=== PATIENT | male | born 1960 | race Caucasian/White ===

== ENCOUNTER 2020-11-25 08:54 | Observation (INO) | payer OTHER ==
[~2020-11-25] VITALS: Ht 177.8 cm; Wt 79.4 kg
[~2020-11-25 08:54] MED LIST: ASPI81TA24 PO; FOLI1TAB19 PO; FURO-570 PO; LISI5TAB PO; METO50TE2 PO; POTA1POW
[2020-11-25 08:55] VITALS: BP 143/90
--- NOTE | 2020-11-25 09:08 | NUR ---
EMT at bedside for EKG.
--- NOTE | 2020-11-25 09:09 | NUR ---
60 y/o male c/o chest pain X2 days describes as sharp constant non-radiating. Pt states episode came on after a "violent coughing episode 3 days ago. Progressively worsen, worsens with deep breath. Pt states +n/v X3 last night, 1 episode this morning. Pt states he took tylenol and norco prior to arrival with some relief. PMH: Prostatic aortic heart valve Meds: metoprolol, warfarin, 81mg ASA, lisinopril NKA
[2020-11-25] MEDS ORDERED: ONDANSETRON 4 MG/2 ML VIAL IVP ONE ×2 (09:25→12:15)
[2020-11-25] MEDS ORDERED: fentaNYL citrate 0.05 MG/ML VIAL IVP ONE (09:25)
--- NOTE | 2020-11-25 09:32 | NUR ---
Lab at bedside.
--- NOTE | 2020-11-25 09:39 | NUR ---
structural engineering technician at pt bedside.
[2020-11-25 09:53] LABS: BASOPHILS % (AUTO) 0.3 % (0.0-2.0); EOSINOPHILS % (AUTO) 0.3 % (0.0-4.0); HEMATOCRIT 43.7 % (36-52); HEMOGLOBIN 15.1 g/dL (12.0-18.0); LYMPHOCYTES # (AUTO) 0.9 K/uL (2.0-11.5); LYMPHOCYTES % (AUTO) 6.2 % (20.5-51.1); MEAN CORPUSCULAR HEMOGLOBIN 32 pg (27-31); MEAN CORPUSCULAR HGB CONC 35 g/dL (33-37); MEAN CORPUSCULAR VOLUME 92.5 fL (80-94); MONOCYTES # (AUTO) 1.6 K/uL (0.8-1.0); MONOCYTES % (AUTO) 11.4 % (1.7-9.3); NEUTROPHILS # (AUTO) 11.3 K/uL (1.8-7.7); NEUTROPHILS % (AUTO) 81.8 % (42.2-75.2); PLATELET COUNT (AUTO) 212 K/uL (140-450); RED BLOOD CELL COUNT(AUTO) 4.73 MIL/uL (4.20-6.10); RED CELL DISTRIBUTION WIDTH 13.4 % (11.6-13.7); WHITE BLOOD COUNT (AUTO) 13.8 K/uL (4.8-10.8)
[2020-11-25 10:06] LABS: ALBUMIN 4.5 g/dL (3.4-5.0); ANION GAP 14.2 (8-16); CARBON DIOXIDE 23.9 mmol/L (21-32); CREATININE 0.7 mg/dL (0.6-1.3); POTASSIUM 4.1 mmol/L (3.5-5.1); TOTAL BILIRUBIN 1.2 mg/dL (0.0-1.0)
--- NOTE | 2020-11-25 11:19 | NUR ---
Pt resting, VSS, will continue to monitor.
--- NOTE | 2020-11-25 11:38 | NUR ---
DR RICH AT BEDSIDE RE-EVALUATING PATIENT
[2020-11-25] MEDS ORDERED: MORPHINE SULFATE 4 MG/ML SYR IVP ONE (12:05)
[2020-11-25] MEDS ORDERED: ONDANSETRON 4 MG/2 ML VIAL ONE (12:20)
--- NOTE | 2020-11-25 12:26 | NUR ---
Patient reports drug reaction after Morphine IVP. Patient noted with (2) 2.5-3cm raised red blister/patches of left forearm near IV site. Patient denies any itchiness, wheezing, chest tightness, hoarseness, difficulty swallowing, or shortness of breath. No distress noted at this time; will continue to monitor. Pt remains on quality assurance monitor final; SpO2 96% on room air.
[2020-11-25 12:28] LABS: PROTHROMBIN TIME 15.4 secs (10.8-13.4)
--- NOTE | 2020-11-25 12:57 | NUR ---
PATIENT TAKEN TO CT VIA AKASH
--- NOTE | 2020-11-25 13:18 | NUR ---
Pt resting, visible equal rise and fall of chest, VSS, will continue to monitor.
[2020-11-25] MEDS ORDERED: ASPIRIN 325 MG TAB PO ONE (13:30)
--- NOTE | 2020-11-25 13:30 | NUR ---
No visible rash to IV site at this time, made aware. Pt denies SOB, denies any other symptoms.
[2020-11-25] MEDS ORDERED: MORPHINE SULFATE 4 MG/ML SYR IVP PRN (14:05)
[2020-11-25] MEDS ORDERED: ACETAMINOPHEN 325 MG TAB PO PRN (14:05)
[2020-11-25] MEDS ORDERED: KCL 20 MEQ/WATER INJ PREMIX 200 ML IV PRN (14:05)
[2020-11-25] MEDS ORDERED: MAG SULF 2000 MG/WATER PREMIX 50 ML IV PRN (14:05)
[2020-11-25] MEDS ORDERED: POTASSIUM CHLORIDE 10 MEQ TABER PO PRN (14:05)
[2020-11-25] MEDS ORDERED: MAGNESIUM OXIDE 400 MG TAB PO PRN (14:05)
--- NOTE | 2020-11-25 15:33 | NUR ---
Pt laying on right side, HOB lowered for comfort, VSS, will continue to monitor.
--- NOTE | 2020-11-25 17:03 | NUR ---
Pt states pain is 9/10 to head, states +N, 1 episode of vomiting. MD made aware.
--- NOTE | 2020-11-25 17:12 | NUR ---
Pt medicated and provided with new emesis bag, will continue to monitor.
[2020-11-25] MEDS: ONDANSETRON 4 MG/2 ML VIAL IVP PRN ×2 (17:17→22:18)
--- NOTE | 2020-11-25 17:36 | NUR ---
Pt resting comfortably, VSS, will continue to monitor.
--- NOTE | 2020-11-25 18:53 | NUR ---
Pt sleeping on left side, HOB lowered for comfort, VSS, will continue to monitor.
--- NOTE | 2020-11-25 19:17 | NUR ---
Gave report to MARGARETH Yanes. Transfer of care at this time.
--- NOTE | 2020-11-25 20:05 | NUR ---
Patient will be admitted to care of DR. HERO CHINCHILLA. Admited to TELEMETRY. Will go to [id number] B Belongings list completed. Report to BLANQUITA ZULUAGA.
--- NOTE | 2020-11-25 20:15 | NUR ---
REPORT GIVEN FROM ER NURSE. PATIENT WAS BROUGHT TO [facility] UNIT. AWAKE, ALERT ORIENTED X4. CC: CHEST PAIN X3 DAYS , COUGHING. DX: CHEST PAIN. LEUKOCYTOSIS. NO ACUTE DISTRESS NOTED. RESPIRATION EVEN UNLABORED. LUNGS CLEAR ON AUSCULTATION, BOWEL SOUNDS PRESENT IN ALL 4 QUADRANT. MRSA SCREENING DONE. ORIENTED TO ROOM, RESTROOM, CALL LIGHT , STAFF. SAFETY MEASURES IN PLACE
[2020-11-25] MEDS: HYDROcodone/APAP 5/325 MG 1 TAB TAB PO PRN (22:18)
[2020-11-26] VITALS: BP 109/75
[2020-11-26 04:00] VITALS: BP 131/78
[2020-11-26] MEDS: HYDROcodone/APAP 5/325 MG 1 TAB TAB PO PRN ×2 (05:08→11:08)
--- NOTE | 2020-11-26 07:03 | NUR ---
PATIENT HAS BEEN SCREENED AND CATEGORIZED MODERATE NUTRITION RISK. PATIENT WILL BE SEEN WITHIN 3-5 DAYS OF ADMISSION. 11/30/20-12/02/20 VAL MORENO MS, RDN
--- NOTE | 2020-11-26 07:27 | NUR ---
ENDORSED TO AM RN FOR CONTINUITY OF CARE. PATIENT IS STABLE.
--- NOTE | 2020-11-26 07:29 | NUR ---
RECEIVED REPORT FROM NIGHT NURSE. ACCORDING TO NIGHT NURSE, PT IS ON A CARDIAC DIET. WITH AN IV ON LEFT ARM 20 GAUGE SALINE LOCK. PT HAS BEEN GIVEN NORCO FOR CHEST PAIN.PT CARDIAC RHYTHM IS A-FIB. PT HAS BEEN COVID-19 VACCINATED WITH MODERNA.SAFETY PRECAUTIONS ARE IN PLACE. CALL LIGHT IS WITHIN REACH. WILL CONTINUE WITH PLAN OF CARE.
--- NOTE | 2020-11-26 08:00 | NUR ---
MADE ROUNDS AT THIS TIME PT IS SLEEPING NO DISTRESS NOTED.
[2020-11-26 10:00] VITALS: BP 123/75
--- NOTE | 2020-11-26 11:12 | NUR ---
ADMINISTERED NORCO FOR 610 PAIN. BP WAS 148/83, AL:90. EDUCATED PT ON MEDICATION, SIDE EFFECTS. PT VERBALIZED UNDERSTANDING ON PAIN MEDICATION. CALL LIGHT IS WITHIN REACH. SAFETY PRECAUTIONS IN PLACE. WILL RE ASSESS PAIN LEVEL IN 1 HOUR.
[2020-11-26 12:00] VITALS: BP 149/73
[2020-11-26] MEDS ORDERED: ACET-9527 PO (12:04)
[2020-11-26 12:58] LABS: MEAN CORPUSCULAR HEMOGLOBIN 32 pg (27-31); WHITE BLOOD COUNT (AUTO) 10.7 K/uL (4.8-10.8)
[2020-11-26 13:03] LABS: BASOPHILS % (AUTO) 0.3 % (0.0-2.0); EOSINOPHILS # (AUTO) 0.1 K/uL (0-0.4); HEMATOCRIT 39.9 % (36-52); HEMOGLOBIN 13.8 g/dL (12.0-18.0); LYMPHOCYTES # (AUTO) 1.2 K/uL (2.0-11.5); LYMPHOCYTES % (AUTO) 11.4 % (20.5-51.1); MEAN CORPUSCULAR HGB CONC 35 g/dL (33-37); MEAN CORPUSCULAR VOLUME 92.2 fL (80-94); MONOCYTES # (AUTO) 1.4 K/uL (0.8-1.0); MONOCYTES % (AUTO) 12.8 % (1.7-9.3); NEUTROPHILS % (AUTO) 74.5 % (42.2-75.2); PLATELET COUNT (AUTO) 189 K/uL (140-450); RED BLOOD CELL COUNT(AUTO) 4.32 MIL/uL (4.20-6.10)
[2020-11-26 13:06] LABS: ALBUMIN 3.9 g/dL (3.4-5.0); ANION GAP 12.4 (8-16); CARBON DIOXIDE 26.5 mmol/L (21-32); CHOL/HDL RATIO 3.3 (1-4.5); CREATININE 0.7 mg/dL (0.6-1.3); MAGNESIUM 1.6 mg/dL (1.8-2.4); POTASSIUM 3.9 mmol/L (3.5-5.1); TOTAL BILIRUBIN 1.1 mg/dL (0.0-1.0)
--- NOTE | 2020-11-26 14:13 | NUR ---
PT HAD 3ML OF EMESIS THAT WAS WATERY AND BROWN IN COLOR/FOOD RESIDUE. PROVIDED AN EMESIS BIN. PT IS NOT ASKING FOR COMFORT MEASURES. PT IS DRINKING WATER AND IS NOT UNDER DISTRESS. CALL LIGHT IS WITHIN REACH AND PT WILL CALL IF HE HAS ANOTHER EMESIS EPISODE. WILL CONTINUE TO MONITOR.
--- NOTE | 2020-11-26 15:05 | NUR ---
DISCHARGED PT. PT WAS PROVIDED WITH DISCHARGE PACKET WHICH INCLUDED PRESCRIBED MEDICATIONS, DISCHARGE INSTRUCTIONS, FOLLOWING UP WITH PCP AND DIRECTOR INDEPENDENT WITHIN 7 DAYS OF DISCHARGE. PT WAS EDUCATED ON THE DISEASE PROCESS AND WHEN TO SEEK MEDICAL HELP IF NEEDED. PT SHOWED VERBAL UNDERSTANDING OFD EDUCATIONS BY THE TEACH BACK METHOD. IV CATHETER WAS DC'S. IV CATHETER WAS INTACT UPON EXPULSION OF SKIN AND DISCARDED PER PROTOCOL.2 2X2 GAUZE WAS APPLIED FOR PROPER SECUREMENT. PT WAS ABLE TO DRESS HIMSELF. PT TOOK ALL OF HIS BELONGINGS. PT WAS WHEELED DOWN BY WHEELCHAIR TO FRONT OF LOBBY ACCOMPANIED BY HIS MOTHER. PT WAS DRIVEN HOME WITH MOTHER VEHICLE. WILL END PLAN OF CARE.
== END 2020-11-26 15:05 | disposition home or self-care (01) ==
LOC: MED 08:54 → MTU 14:07
PROVIDERS: ADMIT Internal Medicine; ATTEND Internal Medicine
DX: R07.89 Other chest pain (principal); I47.1 Supraventricular tachycardia; I10 Essential (primary) hypertension; J40 Bronchitis, not specified as acute or chronic; Z87.891 Personal history of nicotine dependence; Z79.01 Long term (current) use of anticoagulants; Z95.2 Presence of prosthetic heart valve
CPT/HCPCS: 36415; 71045; 74176; 80053; 80061; 83036; 83690; 83735; 84484; 85025; 85379; 85610; 85730; 87081; 93005; 96374; 96375; 96376; 99285; G0378; J2270; J2405; J3010